=== PATIENT | male | born 1970 | race Caucasian/White ===

== ENCOUNTER 2017-01-29 12:47 | Day surgery (SDC) | payer OTHER ==
[~2017-01-29] VITALS: Ht 182.9 cm; Wt 80.8 kg
[~2017-01-29 12:47] MED LIST: CHOLESTEROL MED; CYCL-319 PO; NAPR-260 PO; TRAM50TA2 PO
[2017-01-29 14:01] VITALS: Ht 182.9 cm; Wt 80.8 kg
[2017-01-29 15:05] VITALS: BP 100/63; PULSE 50; RESP 18
[2017-01-29] MEDS ORDERED: MIDAZOLAM 1 MG/ML 2 ML INJ ONE ×2 (15:29)
[2017-01-29] MEDS ORDERED: FENTAnyl 50 MCG/ML VIAL ONE (15:30)
[2017-01-29 15:37] VITALS: BP 110/84; PULSE 80; RESP 18
--- NOTE | 2017-01-30 06:02 | GILP ---
DATE OF PROCEDURE: 01/29/2017 PREOPERATIVE DIAGNOSIS: Past history of abnormal polyp removed at 35 cm with severe dysplasia. Thi s is a followup colonoscopy. PROCEDURE DONE: Colonoscopy and biopsy and removal of small 3 mm polyp. DESCRIPTION OF PROCEDURE: The patient was put in left lateral decubitus after obtaining informed co nsent. He was sedated with 3 mg IV Versed, 75 mcg of fentanyl. Advanced Olympus video colonoscope all the way to cecum. Ileocecal valve, appendiceal opening identified, wash lavage continuously bec ause of poor prep. Some seeds were present, however, most of the colon was examined thoroughly and one 3 mm polyp was noted at 25 cm, removed by cold biopsy polypectomy technique. The rectum also ex amined with retroflexion and unremarkable. At 35 cm level, it was thoroughly examined for any recur rence of polyp and there was none and it was negative. RECOMMENDATIONS: At present, follow up for biopsy report and repeat colonoscopy in 3 to 5 years and follow up in 2 weeks. Dictated By: RULA PEÑA Conf#: [id number] DID#: [id number] CC: Dr. Johnny Suarez;*End*
== END 2017-01-29 15:15 | disposition home or self-care (01) ==
LOC: GIL 12:47
PROVIDERS: ATTEND Internal Medicine
DX: D12.5 Benign neoplasm of sigmoid colon (principal); Z87.891 Personal history of nicotine dependence
CPT/HCPCS: 45380; 88305; J2250; J3010; Z7610

== ENCOUNTER 2017-06-20 02:29 | Emergency (ER) | payer OTHER ==
[~2017-06-20] VITALS: Ht 177.8 cm; Wt 80.5 kg
[~2017-06-20 02:29] MED LIST changes: -CYCL-319 PO; -NAPR-260 PO; -TRAM50TA2 PO
[2017-06-20 02:34] VITALS: Ht 177.8 cm; Wt 80.5 kg
--- NOTE | 2017-06-20 04:45 | RADRPT ---
PROCEDURE: Chest. CLINICAL INDICATION: Chest pain. TECHNIQUE: Single frontal view of the chest was obtained. COMPARISON: None. FINDINGS: The cardiac silhouette is within normal limits. The aortic arch is unremarkable. There is no focal consolidation, vascular congestion or pleural effusion. There is no pneumothorax. IMPRESSION: No evidence for active cardiopulmonary disease. .Estuardo Lackey MD, MD Date Time Electronically viewed and signed by .Estuardo Lackey MD, on 06/20/2017 04:45 .T/
--- NOTE | 2017-06-20 05:13 | RADRPT ---
PROCEDURE: Noncontrast CT Head. CLINICAL INDICATION: Headache TECHNIQUE: Noncontrast CT of the head was obtained. The administered radiation dose was CTDI vol = 45 mGy, DLP = 720 mGy-cm. COMPARISON: No pertinent prior examinations were submitted for comparison. FINDINGS: The ventricles and sulci are within normal limits. There is no acute intracranial hemorrhage or ext ra-axial fluid collection. There is no mass effect. No midline shift is identified. There is no loss of wheeler-white differentiation to suggest acute infarction. The orbits are within normal limits. The paranasal sinuses and mastoid air cells are without fluid. No destructive osseous lesion is identified. IMPRESSION: No acute findings. RPTAT: HIKT .Lasha Jimenez MD, MD Date Time Electronically viewed and signed by .Lasha Jimenez MD, on 06/20/2017 05:13 .T/
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
[2017-06-20] MEDS ORDERED: CYCL-319 PO (05:32)
[2017-06-20] MEDS ORDERED: ACET500C5 PO (05:32)
[2017-06-20] MEDS ORDERED: HYDR-906 PO (05:32)
== END 2017-06-20 05:40 | disposition home or self-care (01) ==
LOC: FTE 02:29
DX: S06.0X0A Concussion without loss of consciousness, initial encounter (principal); S29.9XXA Unspecified injury of thorax, initial encounter; S20.219A Contusion of unspecified front wall of thorax, initial encounter; V89.2XXA Person injured in unspecified motor-vehicle accident, traffic, initial encounter; Z87.891 Personal history of nicotine dependence
CPT/HCPCS: 70450; 71010; Z7502